=== PATIENT | female | born 1955 | race Caucasian/White ===

== ENCOUNTER 2023-05-02 10:36 | Emergency (ER) | payer OTHER, SELFPAY ==
[2023-05-02 11:05] VITALS: BP 146/83; PULSE 76; RESP 18; TEMP 36.6; O2SAT 95; BMI 31.9
--- NOTE | 2023-05-02 14:24 | ED.GENADULT ---
HPI - General Adult General Chief complaint: General Medical Stated complaint: Fall / ribs pain Time Seen by Provider: 05/02/23 14:06 Source: patient Mode of arrival: ambulatory Limitations: no limitations History of Present Illness HPI narrative: 67 yo female with history of T2DM, asthma, GERD, lumbar disc herniation, sciatica presents for evaluation of slip and fall at home in her bathroom. Patient states she slipped on a small puddle of water while trying to fill her dog's water tray. She reports that she fell on her right side hitting her hip, rib cage, shoulder, and face onto the edge of the tub. She denies LOC. She states that immediately after she felt dizzy and nausea, but denies vomiting. She reports that breathing makes is painful. 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 She currently takes ASA 81mg daily. Related Data Allergies Allergy/AdvReac Type Severity Reaction Status Date / Time cephalexin [From KEFLEX] Allergy Severe THROAT AND Unverified 07/11/20 16:22 FACIAL SWELLING, REDNESS ALL OVER ANAPHALAXIS Review of Systems Review of Systems: Yes all other systems are reviewed and are negative Constitutional: Constitutional: Reports no additional constitutional complaints, Denies body ache(s), Denies chills, Denies fever(s), Denies headache(s) and Denies weakness Eyes: Eyes: Reports no additional eye complaints and Denies change in vision ENT: Reports system reviewed and no additional complaints, except as documented, Denies dizziness, Denies headache(s), Denies nasal congestion, Denies nasal discharge and Denies neck pain Cardiovascular: Cardiovascular: Reports no additional cardiovascular complaints, Reports chest pain, Denies leg edema and Denies dyspnea Respiratory: Respiratory: Reports no additional respiratory complaints, Denies cough and Denies dyspnea Gastrointestinal: Gastrointestinal: Reports no additional gastrointestinal complaints, Denies abdominal pain, Denies diarrhea, Denies nausea and Denies vomiting Genitourinary: Genitourinary: Reports no additional female genitourinary complaints and Denies urinary incontinence Musculoskeletal: Musculoskeletal: Reports no additional musculoskeletal complaints, Denies back pain, Reports arthralgias, Denies joint swelling, Denies neck pain, Denies numbness and Denies tingling Integumentary/Breasts: Skin/Breast: Reports system reviewed and no additional complaints, except as docu and Denies rash Neurologic: Reports system reviewed and no additional complaints, except as documented, Denies dizziness, Denies headache(s), Denies numbness, Denies tingling and Denies weakness PMFSH Past Medical History Attestation statement: The following information was validated with the patient. Source: old records reviewed and nursing notes reviewed Social History Social History Advance Directives: Yes Advance Directives Information Provided: No Advance Directives on File: No Physical Exam ED Vital Signs: Vital Signs - 24 hr 05/02/23 11:05 05/02/23 14:25 Temperature 98 F 98.2 F Pulse Rate 76 75 Respiratory Rate 18 18 Blood Pressure 146/83 H 154/81 H Pulse Oximetry 95 97 Oxygen Delivery Method Room Air Room Air BMI result Body Mass Index 31.9 Const General: healthy appearing, comfortable, no acute distress and awake Orientation/consciousness: patient oriented x3 Limitations: no limitations HENMT Head: Yes normal to inspection, No Tirado's sign and No raccoon eyes Ears: hearing grossly normal bilaterally and TM's normal bilaterally General nose exam: Normal external nose present Face and sinus: Yes normal facial exam Mouth: Normal oral and palatal mucosa present Teeth and gingiva: dentition normal Throat: Yes posterior oropharynx normal, Yes tonsils normal and Yes uvula midline Eyes General: appearance normal, both eyes and all related structures Pupils: Equal, round and reactive pupils present EOM: EOMs intact bilaterally Neck Neck: Yes normal visual inspection, Yes full ROM, Yes no lymphadenopathy and Yes no meningeal signs Chest Chest palpation & inspection: normal inspection of the chest and localized rib tenderness with anteroposterior compression Resp Effort & Inspection: normal respiratory effort Auscultation: clear to auscultation bilaterally Cardio Rate: regular rate Rhythm: regular rhythm Peripheral pulses: Peripheral pulses 2+ throughout GI Inspection: Yes normal to inspection Palpation (GI): Soft to palpation and nontender Back/Spine/Pelvis Thoracic/Lumbar Spine: lumbar spinal tenderness Skin General skin exam: rashes and/or lesions noted, no ecchymosis, no erythema and no purpura Trauma: no lacerations or abrasions Wounds: no wounds Neuro General: patient oriented x3, moves all extremities and no meningeal signs Cranial nerves: Yes CN's II-XII intact bilaterally, Yes Equal, round and reactive pupils present, Yes Bilaterally intact EOM present, Yes Nystagmus not present, Yes Normal facial strength present and Yes Midline tongue present Cognition (Neuro): normal cognition Gait exam (Neuro): Normal gait present Motor exam (neuro): 5/5 motor strength present throughout Sensory Exam: Normal double simultaneous stimulation for sensation Extrem Other: TTP over right proximal humerus with FROM. CMS intact distally TTP over right lateral hip with FROM. CMS intact distally no ecchymosis General: Yes normal to inspection, Yes no pedal edema and Yes no calf tenderness Course Course Course Narrative: 1500-sign out to faith ROSAS pending imaging results Medical Decision Making Medical Decision Making MDM Narrative: 67 yo female here with complaints of slip and fall hitting her right ribs, right shoulder, right hip. Patient ambulatory in the ER. NO head strike or LOC. NO AC therapy. No focal abdominal pain. LS CTA. VSS will check x-rays of right shoulder, ribs, hip. Differential Diagnosis Differential Diagnoses: The differential diagnosis associated with the presentation includes contusion, rib fracture low concern for acute abdominal pathology no head strike or loc with concern for need for ICH or need for Ct head imagine (reviewed CT emirati head ct rule-no need for imaging) Independent Interpretation I performed an independent interpretation of an: Plain X-Ray Radiology Impression Discussion of test interpretation with radiology: I have reviewed the radiologist's reading. Discharge Plan Discharge Clinical Impression: Contusion of rib on right side Patient Disposition: Still a Patient Instructions: Rib Contusion (ED), Contusion in Adults (ED)
[2023-05-02 14:25] VITALS: BP 154/81; PULSE 75; RESP 18; TEMP 36.8; O2SAT 97
--- NOTE | 2023-05-02 14:34 | PC.NURSE ---
pt was assessed by MANUFACTURING SUPERVISOR 2ND SHIFT, imaging ordered. pt is ambulatory in ED without with significant difficulty
--- NOTE | 2023-05-02 16:50 | ED.GENADULT ---
HPI - General Adult General Chief complaint: General Medical Stated complaint: Fall / ribs pain Time Seen by Provider: 05/02/23 14:06 Source: patient Mode of arrival: ambulatory Limitations: no limitations Related Data Allergies Allergy/AdvReac Type Severity Reaction Status Date / Time cephalexin [From KEFLEX] Allergy Severe THROAT AND Unverified 07/11/20 16:22 FACIAL SWELLING, REDNESS ALL OVER ANAPHALAXIS PMFSH Social History Social History Advance Directives: Yes Advance Directives Information Provided: No Advance Directives on File: No Physical Exam ED Vital Signs: Vital Signs - 24 hr 05/02/23 11:05 05/02/23 14:25 Temperature 98 F 98.2 F Pulse Rate 76 75 Respiratory Rate 18 18 Blood Pressure 146/83 H 154/81 H Pulse Oximetry 95 97 Oxygen Delivery Method Room Air Room Air BMI result Body Mass Index 31.9 Course Reevaluation(s) Reevaluation #1: XR/XR hip RT w PEL1V IMPRESSION: Unremarkable AP pelvis and right hip exam. Unremarkable chest AP and right RIBS. ? Unremarkable right shoulder exam. stable for d/c home Discharge Plan Discharge Clinical Impression: Contusion of rib on right side Patient Disposition: Still a Patient Instructions: Contusion in Adults (ED), Rib Contusion (ED)
== END 2023-05-02 16:58 | disposition home or self-care (01) ==
PROVIDERS: Emergency Provider Emergency Medicine; PCP Internal Medicine
DX: S20.213A Contusion of bilateral front wall of thorax, initial encounter (principal); R07.81 Pleurodynia; M25.551 Pain in right hip; M25.511 Pain in right shoulder; X58.XXXA Exposure to other specified factors, initial encounter; Y93.9 Activity, unspecified; Y92.9 Unspecified place or not applicable; Y99.9 Unspecified external cause status
CPT/HCPCS: 71101; 73030; 73502; 99282; 99283